=== PATIENT | female | born 1980 | race Two or more races ===

== ENCOUNTER 2019-03-08 14:41 | Emergency (ER) | payer SELFPAY ==
[~2019-03-08] VITALS: Ht 167.6 cm; Wt 63.5 kg
[2019-03-08 15:00] VITALS: BP 118/78
[2019-03-08] MEDS ORDERED: DiphenhydrAMINE 50mg/ml Inj IVP ONE (15:00)
[2019-03-08] MEDS ORDERED: Haloperidol 5mg/ml Inj IM ONE ×2 (15:30)
[2019-03-08] MEDS ORDERED: LORazepam Inj 2mg/ml 1ml IV ONE (15:30)
[2019-03-08 15:44] LABS: BASOPHILS % (AUTO) 1.2 % (0.0-2.0); EOSINOPHILS % (AUTO) 0.2 % (0.0-3.0); HEMATOCRIT 40.9 % (37.0-47.0); HEMOGLOBIN 14.1 G/DL (12.0-16.0); LYMPHOCYTES % (AUTO) 9.5 % (20.0-45.0); MEAN CORPUSCULAR VOLUME 93 FL (80-99); PLATELET COUNT 282 K/UL (150-450); RED BLOOD COUNT 4.41 M/UL (4.20-5.40); RED CELL DISTRIBUTION WIDTH 10.6 % (11.6-14.8); WHITE BLOOD COUNT 15.3 K/UL (4.8-10.8)
[2019-03-08 16:08] LABS: ANION GAP 12 mmol/L (5-15); BLOOD UREA NITROGEN 8 mg/dL (7-18); CALCIUM 9.5 MG/DL (8.5-10.1); CARBON DIOXIDE 23 MMOL/L (21-32); CHLORIDE 106 MMOL/L (98-107); CREATININE 0.7 MG/DL (0.55-1.30); POTASSIUM 3.5 MMOL/L (3.5-5.1); SODIUM 141 MMOL/L (136-145)
[2019-03-08 16:14] LABS: ALANINE AMINOTRANSFERASE 29 U/L (12-78); ALBUMIN 4.5 G/DL (3.4-5.0); ALBUMIN/GLOBULIN RATIO 1.9 (1.0-2.7); ALKALINE PHOSPHATASE 53 U/L (46-116); ASPARTATE AMINO TRANSFERASE 37 U/L (15-37); BILIRUBIN,TOTAL 0.7 MG/DL (0.2-1.0); CREATINE KINASE 595 U/L (26-308)
--- NOTE | 2019-03-08 16:18 | Emergency Room Report ---
History of Present Illness General Chief Complaint: General Complaint Source: Medical Record Present Illness HPI 38-year-old female with unknown past medical history brought in by the paramedics as she was laying on the street screaming that something is wrong and she is anxious. She appears very calm and sleeping as I examine her she takes a few minutes to respond to questions however she does respond to questions such as you have any allergies or to take any medication. Patient denies any injury, chest pain, palpitation, shortness of breath, drug use, smoking. Patient denies taking any daily medication. Otherwise she is a poor historian.also complains of left foot pain no injury. Allergies: Coded Allergies: No Known Allergies (Unverified , 03/08/19) Patient History Past Medical History: see triage record Past Surgical History: unable to obtain Pertinent Family History: unable to obtain Now: No - DONT REMEMBER Immunizations: other Reviewed Nursing Documentation: PMH: Agreed; PSxH: Agreed Nursing Documentation-PMH Past Medical History: No History, Except For History Of Psychiatric Problem: Yes Review of Systems All Other Systems: negative except mentioned in HPI Physical Exam Vital Signs Date Time Temp Pulse Resp B/P (MAP) Pulse Ox O2 Delivery O2 Flow Rate FiO2 03/08/19 14:37 85 15 118/78 (91) 98 Room Air 03/08/19 15:00 98.6 Sp02 EP Interpretation: reviewed, normal General Appearance: alert, lethargic Eyes: bilateral eye abnormal pupil ENT: normal ENT inspection Neck: normal inspection, full range of motion, supple Respiratory: normal inspection, chest non-tender, normal breath sounds, no wheezing Cardiovascular #1: normal inspection, regular rate, rhythm, no edema, no murmur , normal capillary refill Gastrointestinal: normal inspection, non tender Rectal: deferred Genitourinary: no CVA tenderness Musculoskeletal: normal inspection, back normal Neurologic: alert, responsive, sensory intact Psychiatric: depressed affect, other - extreme fatigue, unknown substance use Suicide Risk Assessment: Suicidal Ideation: No Had intent to initiate attempt: No Pt's plan for suicide attempt: No Has means to complete attempt: No Skin: normal inspection, normal color, no rash Lymphatic: normal inspection, no adenopathy Medical Decision Making PA Attestation All my diagnosis and treatment plans were reviewed ad discussed with my supervising physician Dr. Whitman Homeless Attestation the treating Dr Whitman has assessed and agrees that patient is medically stable for discharge to an outpatient disposition Diagnostic Impression: Primary Impression: Dehydration Additional Impression: UTI (urinary tract infection) ER Course 38-year-old female with unknown past medical history brought in by the paramedics as she was laying on the street screaming that something is wrong and she is anxious. She appears very calm and sleeping as I examine her she takes a few minutes to respond to questions however she does respond to questions such as you have any allergies or to take any medication. Patient denies any injury, chest pain, palpitation, shortness of breath, drug use, smoking. Patient denies taking any daily medication. Otherwise she is a poor historian. Ddx considered but are not limited to: generalized anxiety disorder, panic attack, depression with psycotic featurs, bipolar disorder, drug overdose Vital signs: are WNL, pt. is afebrile H&PE are most consistent with: UTI, dehydration ORDERS: Psychiatric panel, Benadryl, Rocephin ED INTERVENTIONS: Benadryl DISCHARGE: At this time pt. is stable for d/c to home. Will provide printed patient care instructions, and any necessary prescriptions. Care plan and follow up instructions have been discussed with the patient prior to discharge. wbc 15, UA: pos leuk, CK: 500 EKG Diagnostic Results Rate: normal Rhythm: NSR ST Segments: no acute changes Last Vital Signs Date Time Temp Pulse Resp B/P (MAP) Pulse Ox O2 Delivery O2 Flow Rate FiO2 03/08/19 15:00 85 15 Room Air 03/08/19 15:00 98.6 118/78 98 Disposition: HOME, SELF-CARE Condition: Stable Referrals: NOT CHOSEN IPA/,REFERRING (PCP) Patient Instructions: Dehydration, Adult, [id number], Urinary Tract Infection , [id number] Rossana Gupta Mar 08, 2019 16:18
[2019-03-08 16:38] LABS: APPEARANCE,URINE CLEAR; BILIRUBIN, URINE NEGATIVE (NEGATIVE); COLOR,URINE YELLOW; GLUCOSE, URINE (UA) NEGATIVE (NEGATIVE); KETONES,URINE 3+ (NEGATIVE); LEUKOCYTE ESTERASE ,URINE 3+ (NEGATIVE); NITRITE,URINE NEGATIVE (NEGATIVE); PH,URINE 6 (4.5-8.0); PROTEIN,URINE 2+ (NEGATIVE); UROBILINOGEN,URINE NORMAL MG/DL (0.0-1.0)
[2019-03-08] MEDS ORDERED: Lidocaine 1% MPF 10mg/ml 5ml INJ ONE (18:15)
[2019-03-08] MEDS ORDERED: cefTRIAXone 1 GM in NS 55 ML IVPB ONE (18:45)
[2019-03-08 19:10] VITALS: BP 122/82
[2019-03-08 23:10] VITALS: BP 130/74
[2019-03-09 02:31] VITALS: BP 111/69
[2019-03-09 04:39] VITALS: BP 109/79
[2019-03-09] MEDS ORDERED: CEPHALEXIN500 MG ORAL (06:16)
[2019-03-09 06:47] VITALS: BP 112/82
[2019-03-09 06:52] VITALS: BP 112/82
--- NOTE | 2019-03-09 15:28 | Cardiology Report ---
APPROVED REPORT EKG Measurement Heart [id number] Sinus rhythm with short NH Otherwise normal ECG
--- NOTE | 2019-03-09 16:52 | Diagnostic Imaging Report ---
Indication: Left foot pain Technique: 3 views left foot Comparison: none Findings: No acute fractures. No dislocations. The joint spaces are preserved Impression: Negative
== END 2019-03-09 07:05 | disposition home or self-care (01) ==
LOC: EDBD 14:41 → EMR 15:15
DX: E86.0 Dehydration (principal); N39.0 Urinary tract infection, site not specified
CPT/HCPCS: 36415; 73630; 80053; 80307; 81003; 82550; 84703; 85025; 87086; 93005; 96365; 96372; 96375; 99284; G0480; J0696; J1200; J1630; 80329